=== PATIENT | female | born 1995 | race Caucasian/White ===

== ENCOUNTER → 2017-02-10 | Outpatient (CLI) | payer OTHER ==
[~2017-02-10] MED LIST: AMOXICILLIN; AMOXICILLIN PO; FLONASE16 GM; MUCINEX OTC; NO MEDICATIONS; PHENERGAN PO; PHENERGAN12.5 MG/0. PO; PRENA1 CHEW TABL1 MG; PRENATAL VITAMI1 TA3 PO; ULTRACET TABLET1 TAB PO; ULTRAM PO; ZYRTEC PO
--- NOTE | ~2017-02-10 | CT2 ---
[facility] A Service of [facility] RADIOLOGY TEXT RESULTS PATIENT: ISAIAH HUA LOCATION: [facility] : [birth year] UNIT #: [id number] AGE: [address]: Kel Quinones MD SEX: F ORDER DR: [id number] [address] [address] [id number] O MR#: [id number] Acc #: [id number] NAME: ISAIAH HUA : 1995 SEX: F STUDY DATE/TIME: 02/10/2017 12:13 UNIT: [facility] ROOM: STUDY DESCRIPTION: CT Abd and Pelv W Cont Attending Physician: Kel Quinones M.D. Referring Physician: Kel Quinones M.D. Ordering Physician: Kel Quinones M.D. Primary Care Physician: Rico Jordan Cipriano MEDICAL IMAGING REPORT This report is preliminary unless electronic signature is present. EXAM CT abdomen and pelvis with contrast INDICATION Left lower quadrant pain off and on since October 2014. TECHNIQUE Axial CT images were obtained from the dome of the diaphragm through the symphysis pubis following the administration of oral and intravenous contrast material. This CT examination was performed with one or more of the following radiation dose reduction techniques: automatic exposure control, adjustment of mA and/or kV according to patient size, and iterative reconstruction. FINDINGS Images through the lung bases are clear. Stomach and proximal small bowel are within normal limits. Liver appears unremarkable as are the adrenal glands, pancreas and left kidney. Spleen also appears normal. There is probably a punctate nonobstructing stone seen within the right kidney. The appendix is visualized and is within normal limits. Urinary bladder appears normal. Uterus is retroflexed. Ovaries appear normal for a 21-year-old woman. There is no evidence of mechanical bowel obstruction. I do not see any free fluid or adenopathy within the pelvis. Review of bony windows does not demonstrate any aggressive osseous abnormalities. Two tubal ligation clips are seen on the left but none are identified on the right. This patient is noted to have a small bowel intussusception within the left lower quadrant. There is no evidence of any obstruction related to this process. This is of uncertain clinical significance. No obvious lead point is seen and intussusceptions can be a transient process seen incidentally on CT. However this patient has been complaining of left STS. [facility] A Service of [facility] RADIOLOGY TEXT RESULTS PATIENT: ISAIAH HUA LOCATION: [facility] : [birth year] UNIT #: [id number] AGE: [address]: Kel Quinones MD SEX: F ORDER DR: lower quadrant abdominal pain. As such, surgical consultation is suggested as is short-term CT followup. IMPRESSION. 1. This patient is noted to have an intussusception involving the small bowel seen within the left lower quadrant. An obvious lead point is not identified. Clinical significance is uncertain as intussusceptions can be a transient finding incidentally noted on CT. The process is not resulting in any obstruction. However this patient has been complaining of left lower quadrant abdominal pain. As such, I would suggest surgical consultation. Short-term CT followup could also be considered to determine whether or not this process is transient. 2. Probable punctate nonobstructing stone within the right kidney. Please see the body of the report for any other additional incidental findings. Dictated by... Kesiha Ríos M.D. THIS IS AN ELECTRONICALLY VERIFIED REPORT Keshia Ríos M.D. at 02/12/2017 4:56 PM MICAH/stacey TD: 02/11/2017 06:44 JOB #: [id number] MEDICAL IMAGING REPORT Page 1 of 1
== END | disposition home or self-care (01) ==
LOC: SCT 10:27
DX: R10.32 Left lower quadrant pain (principal); K59.00 Constipation, unspecified; K56.1 Intussusception; Z80.0 Family history of malignant neoplasm of digestive organs; Z88.8 Allergy status to other drugs, medicaments and biological substances
CPT/HCPCS: 74177; Q9967

== ENCOUNTER → 2017-02-13 | Outpatient (CLI) | payer OTHER ==
--- NOTE | ~2017-02-13 | CR269 ---
[facility] A Service of [facility] RADIOLOGY TEXT RESULTS PATIENT: ISAIAH HUA LOCATION: [facility] : [birth year] UNIT #: [id number] AGE: [address]: Rajendra Edgar MD SEX: F ORDER DR: [id number] [facility]. [place], [place] [address] [id number] O MR#: [id number] Acc #: [id number] NAME: ISAIAH HUA : 1995 SEX: F STUDY DATE/TIME: 02/13/2017 9:50 UNIT: [facility] ROOM: STUDY DESCRIPTION: Upper GI and SBFT Attending Physician: Rajendra Edgar M.D. Referring Physician: Rajendra Edgar M.D. Ordering Physician: Rajendra Edgar M.D. Primary Care Physician: Rico Cota M.D. MEDICAL IMAGING REPORT This report is preliminary unless electronic signature is present EXAM Upper GI series with small bowel follow-through HISTORY This patient is a 21-year-old patient with the history of left lower quadrant pain. She reports that this has been present for 3 years. She had a CT scan performed on February 10, 2017 which showed an intussusception within the left lower quadrant of uncertain clinical significance as these can be a normal transient and findings. Surgical consultation and repeat CT was suggested at that time. TECHNIQUE The patient was administered bicarbonate crystal soft and thick barium and multiple fluoroscopic images were obtained. FINDINGS That image was unremarkable. Thoracic esophagus is of normal caliber with normal esophageal motility. Patient's stomach also appears unremarkable as do the duodenal C-loop. Fold pattern appears unremarkable. I do not see any convincing evidence of intussusception. Small bowel transit time was 1 hour. The terminal ileum appeared unremarkable. Total fluoroscopy time was 2.3 minutes. IMPRESSION Normal upper GI series and small-bowel follow-through. Dictated by... Keshia Ríos M.D. THIS IS AN ELECTRONICALLY VERIFIED REPORT Keshia Ríos M.D. at 02/14/2017 6:08 PM AFF/aa STS. [facility] A Service of [facility] RADIOLOGY TEXT RESULTS PATIENT: ISAIAH HUA LOCATION: [facility] #: [id number] : [birth year] UNIT #: [id number] AGE: [address]: Rajendra Edgar MD SEX: F ORDER DR: TD: 02/14/2017 10:37 JOB #: [id number] MEDICAL IMAGING REPORT Page 1 of 1 COPY
== END | disposition home or self-care (01) ==
LOC: CRAD 08:30
DX: K56.1 Intussusception (principal); R10.32 Left lower quadrant pain
CPT/HCPCS: 74245